=== PATIENT | male | born 1965 | race Caucasian/White ===

== ENCOUNTER 2016-08-09 12:43 | Emergency (ER) ==
[2016-08-09 12:50] VITALS: BP 121/94; TEMP 98.3; BMI 20.3
--- NOTE | 2016-08-09 13:27 | ED.PDOC ---
General ED Provider: Dr. ANGIE VICENTE Chief Complaint: Abscess Stated Complaint: abscess Time Seen by Physician: 13:00 (abscess on left tigh see photo) Information Source: Patient Exam Limitations: No limitations Nursing and Triage Documentation Reviewed and Agree: Yes Skin Complaint Exam - Skin/Soft Tissue Complaint/Exam Symptoms Are: Still present Timing: Constant Initial Severity: Moderate Current Severity: Moderate Character: Reports: Raised, Painful Aggravating: Reports: Heat, Cold, Touch Alleviating: Reports: None Associated Signs and Symptoms: Denies: Fever, Chills, Itching, Drainage, Bruising, Tenderness, Red streaks, Joint swelling Related History: Reports: Similar episode Related Surgical History: Reports: None Recent Exposure to Others w/Similar Symptoms: No Differential Diagnoses: Abscess Review of Systems - Review Of Systems Constitutional: Reports: No symptoms Eyes: Reports: No symptoms Ears, Nose, Mouth, Throat: Reports: No symptoms Respiratory: Reports: No symptoms Cardiac: Reports: No symptoms GI: Reports: No symptoms : Reports: No symptoms Musculoskeletal: Reports: No symptoms Skin: Reports: Other (abscess see photo) Neurological: Reports: No symptoms Endocrine: Reports: No symptoms Hematologic/Lymphatic: Reports: No symptoms All Other Systems: Reviewed and Negative Past Medical History - Past Medical History Previously Healthy: Yes Endocrine: Reports: None Cardiovascular: Reports: None Respiratory: Reports: None Hematological: Reports: None Gastrointestinal: Reports: None Genitourinary: Reports: None Neuro/Psych: Reports: None Musculoskeletal: Reports: None Cancer: Reports: None - Surgical History General Surgical History: Reports: None - Family History Family History: Reports: None - Social History Smoking Status: Heavy tobacco smoker Hx Substance Use: No Alcohol Screening: None - Immunizations Tetanus Shot up to Date: No Physical Exam - Physical Exam Appearance: Well-appearing, No pain distress, Well-nourished Eyes: LEONORA, EOMI, Conjunctiva clear ENT: Ears normal, Nose normal, Oropharynx normal Respiratory: Airway patent, Breath sounds clear, Breath sounds equal, Respirations nonlabored Cardiovascular: RRR, Pulses normal, No rub, No murmur GI/: Soft, Nontender, No masses, Bowel sounds normal, No Organomegaly Musculoskeletal: Normal strength, ROM intact, No edema, No calf tenderness Skin: Warm, Dry (pustule 3cm across) Neurological: Sensation intact, Motor intact, Reflexes intact, Cranial nerves intact, Alert, Oriented Psychiatric: Affect appropriate, Mood appropriate Critical Care Note - Critical Care Note Total Time (mins): 0 Course - Course Vital Signs: Temp Pulse Resp BP Pulse Ox 08/09/16 12:46 98.3 F 112 H 16 121/94 H 98 Departure - Departure Time of Disposition: 13:26 (refusedI/D ) Disposition: HOME SELF-CARE Discharge Problem: Abscess Instructions: Abscess (ED) Condition: Good Pt referred to PMD for follow-up: No Additional Instructions: Please call your Family Physician as soon as possible to schedule a follow-up appointment. Prescriptions: Hydrocodone/Acetaminophen [[place] 5-325 Tablet] 1 each PO Q6HR PRN #14 tablet PRN Reason: PAIN Sulfamethoxazole/Trimethoprim [Bactrim Ds Tablet] 1 each PO BID #14 tablet Allergies/Adverse Reactions: Allergies codeine Adverse Reaction (Verified 08/09/16 12:57) hydrocodone bitartrate [From Lortab] Adverse Reaction (Verified 08/09/16 12:57) Home Medications: Ambulatory Orders Esomeprazole Magnesium [Nexium] 40 mg PO DAILY 01/14/15 Hydrocodone/Acetaminophen [[place] 5-325 Tablet] 1 each PO Q6HR PRN #14 tablet 07/23 Sulfamethoxazole/Trimethoprim [Bactrim Ds Tablet] 1 each PO BID #14 tablet 08/09 Disposition Discussed With: Patient, Family
== END 2016-08-09 13:32 | disposition home or self-care (01) ==
LOC: ED 12:43
DX: L02.416 Cutaneous abscess of left lower limb (principal); F17.210 Nicotine dependence, cigarettes, uncomplicated
CPT/HCPCS: 99282

== ENCOUNTER 2016-08-19 17:59 | Emergency (ER) ==
[2016-08-19 18:06] VITALS: BP 126/88; TEMP 97.4; BMI 20.5
[2016-08-19] MEDS ORDERED: LIDOCAINE 1 % AMP 5 ML (SUTURES) ONE (18:09)
[2016-08-19] MEDS ORDERED: LIDOCAINE 1 % AMP 5 ML (SUTURES) SUBCUT STA (18:10)
[2016-08-19] MEDS ORDERED: ZOFRAN 4 MG/2 ML IM STA (18:17)
[2016-08-19] MEDS ORDERED: MORPHINE 4 MG/ML SYRINGE IM STA (18:17)
--- NOTE | 2016-08-19 18:48 | ED.PDOC ---
General ED Provider: Dr. ANGIE VICENTE Chief Complaint: Abscess Stated Complaint: abcess Time Seen by Physician: 18:00 (seen with nursing staff and sand mixer) Mode of Arrival: Walk-In Information Source: Patient Exam Limitations: No limitations Nursing and Triage Documentation Reviewed and Agree: Yes (seen about 10 days ago for same issue never followed up) Skin Complaint Exam - Skin/Soft Tissue Complaint/Exam Onset/Duration: abcess l tigh Symptoms Are: Still present Timing: Constant Initial Severity: Severe Current Severity: Severe Character: Reports: Redness, Swelling, Raised, Painful Aggravating: Reports: Unknown, Heat, Cold, Touch Alleviating: Reports: None Associated Signs and Symptoms: Reports: Drainage, Tenderness. Denies: Fever, Chills, Itching, Bruising, Red streaks, Joint swelling Related History: Reports: Similar episode (on the back ) Related Surgical History: Reports: None Recent Exposure to Others w/Similar Symptoms: No Skin Findings: Present: Pustules Joint Tenderness Present: No Differential Diagnoses: Abscess Review of Systems - Review Of Systems Constitutional: Reports: No symptoms Eyes: Reports: No symptoms Ears, Nose, Mouth, Throat: Reports: No symptoms Respiratory: Reports: No symptoms Cardiac: Reports: No symptoms GI: Reports: No symptoms : Reports: No symptoms Musculoskeletal: Reports: No symptoms Skin: Reports: Other (abscess l tigh see photos) Neurological: Reports: No symptoms Endocrine: Reports: No symptoms Hematologic/Lymphatic: Reports: No symptoms All Other Systems: Reviewed and Negative Past Medical History - Past Medical History Previously Healthy: Yes Endocrine: Reports: None Cardiovascular: Reports: None Respiratory: Reports: None Hematological: Reports: None Gastrointestinal: Reports: None Genitourinary: Reports: None Neuro/Psych: Reports: None Musculoskeletal: Reports: None Cancer: Reports: None - Surgical History General Surgical History: Reports: None - Family History Family History: Reports: None - Social History Smoking Status: Heavy tobacco smoker Hx Substance Use: No Alcohol Screening: None Physical Exam - Physical Exam Appearance: Well-appearing, No pain distress, Well-nourished Eyes: LEONORA, EOMI, Conjunctiva clear ENT: Ears normal, Nose normal, Oropharynx normal Respiratory: Airway patent, Breath sounds clear, Breath sounds equal, Respirations nonlabored Cardiovascular: RRR, Pulses normal, No rub, No murmur GI/: Soft, Nontender, No masses, Bowel sounds normal, No Organomegaly Musculoskeletal: Normal strength, ROM intact, No edema, No calf tenderness Skin: Warm, Dry (3 cm abscess l tigh locculated and firm already self unroofed ) Neurological: Sensation intact, Motor intact, Reflexes intact, Cranial nerves intact, Alert, Oriented Psychiatric: Affect appropriate, Mood appropriate Procedures - Incision and Drainage Site: l tigh Instrument Used: 15 Blade I & D Procedure: Yes: Hibiclens Prep Lidocaine Used: Yes (2ml plain) Type of Drainage: Present: Pus, Blood Irrigated: No (about 3 ml of puss drained the rest was loculated ) Physician Notification - Case Discussed Physician Notified: Lizzeth Time of Notification: 18:49 (PT TO BE TRANSFERED TO [facility]) Critical Care Note - Critical Care Note Total Time (mins): 0 Course - Course Orders, Labs, Meds: Orders Category Date Time Status Lidocaine HCl/Pf [Lidocaine 1 % Amp 5 ml (Sutures)] MEDS 08/19/16 18:09 Discontinued 5 ml .ROUTE .STK-MED ONE Lidocaine HCl/Pf [Lidocaine 1 % Amp 5 ml (Sutures)] MEDS 08/19/16 18:10 Discontinued 5 ml SUBCUT ONCE STA Morphine Sulfate [Morphine 4 mg/ml Syringe] MEDS 08/19/16 18:17 Discontinued 4 mg IM ONCE STA Ondansetron HCl/Pf [Zofran 4 mg/2 ml] MEDS 08/19/16 18:17 Discontinued 4 mg IM ONCE STA Medications Discontinued Medications Generic Name Dose Route Start Last Admin Trade Name Freq PRN Reason Stop Dose Admin Lidocaine HCl 5 ml 08/19/16 18:10 08/19/16 18:31 Lidocaine 1 % Amp 5 Ml (Sutures) SUBCUT 08/19/16 18:11 5 ml ONCE STA Administration Morphine Sulfate 4 mg 08/19/16 18:17 08/19/16 18:30 Morphine 4 Mg/Ml Syringe IM 08/19/16 18:18 Not Given ONCE STA Ondansetron HCl 4 mg 08/19/16 18:17 08/19/16 18:30 Zofran 4 Mg/2 Ml IM 08/19/16 18:18 Not Given ONCE STA Vital Signs: Temp Pulse Resp BP Pulse Ox 08/19/16 18:00 97.4 F L 95 H 16 126/88 97 Departure - Departure Time of Disposition: 18:50 (LAST MEAL WAS A SODA ABOUT 3 PM) Disposition: TSF SHORT-TRM HOSP Discharge Problem: Abscess Instructions: Abscess (ED) Condition: Good Pt referred to PMD for follow-up: No Additional Instructions: Please call your Family Physician as soon as possible to schedule a follow-up appointment. Allergies/Adverse Reactions: Allergies codeine Adverse Reaction (Verified 08/19/16 18:01) hydrocodone bitartrate [From Lortab] Adverse Reaction (Verified 08/19/16 18:01) Home Medications: Ambulatory Orders Esomeprazole Magnesium [Nexium] 40 mg PO DAILY 01/14/15 Disposition Discussed With: Patient (PHOTOS OF BEFORE AND AFTER SUBMITTED )
== END 2016-08-19 19:08 | disposition short-term general hospital (02) ==
LOC: ED 17:59
DX: L02.416 Cutaneous abscess of left lower limb (principal); F17.210 Nicotine dependence, cigarettes, uncomplicated
CPT/HCPCS: 87070; 87186; 99285

== ENCOUNTER 2016-10-26 08:31 | Emergency (ER) ==
[2016-10-26 08:36] VITALS: BP 139/87; TEMP 97.7; BMI 22.4
--- NOTE | 2016-10-26 09:14 | ED.PDOC ---
General ED Provider: Dr. FRED KUHN JR Chief Complaint: Rash Stated Complaint: HAD A TICK BITE AND SPIDER BITE TO LEFT THIGH 2 MONTHS AGO. HAD SURGERY ON THE SPIDER BITE. NOW HAS RED RAISED AREA WITH BLISTERS TO SAME AREA. DENIES ITCHING STATES [place] [End]97.7 77 18 98% 139/87. myalgia headache left leg Time Seen by Physician: 09:18 Mode of Arrival: Walk-In Information Source: Patient Exam Limitations: No limitations Nursing and Triage Documentation Reviewed and Agree: No Review of Systems - Review Of Systems Constitutional: Reports: No symptoms Eyes: Reports: No symptoms Ears, Nose, Mouth, Throat: Reports: No symptoms Respiratory: Reports: No symptoms Cardiac: Reports: No symptoms GI: Reports: No symptoms : Reports: No symptoms Musculoskeletal: Reports: No symptoms Skin: Reports: Lesions, Rash (multile healing tick bite spatient had been bitten in this area but unsure where- close to healed spider bite) Neurological: Reports: No symptoms Endocrine: Reports: No symptoms Hematologic/Lymphatic: Reports: No symptoms All Other Systems: Other Past Medical History - Past Medical History Previously Healthy: Yes Endocrine: Reports: None Cardiovascular: Reports: None Respiratory: Reports: None Hematological: Reports: None Gastrointestinal: Reports: None Genitourinary: Reports: None Neuro/Psych: Reports: None Musculoskeletal: Reports: None Cancer: Reports: None - Surgical History General Surgical History: Reports: None - Family History Family History: Reports: None - Social History Smoking Status: Heavy tobacco smoker Hx Substance Use: No Alcohol Screening: None Physical Exam - Physical Exam Appearance: Well-appearing, Thin Skin: Warm, Dry, Normal color (LEFT LEG WITH 6CM RING SHAPED LESION DISTAL PORTION WITH FINE VESICLES) Critical Care Note - Critical Care Note Total Time (mins): 0 Course - Course Hematology/Chemistry: 10/26/16 09:25 Orders, Labs, Meds: Lab Review 10/26/16 09:25 WBC 5.28 RBC 5.36 Hgb 16.2 Hct 46.1 MCV 86.0 MCH 30.2 MCHC 35.1 RDW Coeff of Lianet 13.1 Plt Count 223 Immature Gran % (Auto) 0.2 Neut % (Auto) 47.5 Lymph % (Auto) 39.8 [place] % (Auto) 8.1 Eos % (Auto) 4.0 Baso % (Auto) 0.4 Immature Gran # (Auto) 0.0 Neut # 2.5 Lymph # 2.1 [place] # 0.4 Eos # 0.2 Baso # 0.0 Orders Category Date Time Status BLOOD CULTURE Stat LAB 10/26/16 09:25 Received CBC W/ AUTO DIFF Stat LAB 10/26/16 09:25 Completed CMP [COMPREHENSIVE METABOLIC PANEL] Stat LAB 10/26/16 09:25 Received EHRLICHIA DNA, PCR Stat LAB 10/26/16 09:25 Received LYME, WESTERN BLOT, SERUM Stat LAB 10/26/16 09:25 Received Vital Signs: Temp Pulse Resp BP Pulse Ox 10/26/16 08:31 97.7 F 77 18 139/87 98 Departure - Departure Time of Disposition: 09:32 Disposition: HOME SELF-CARE Discharge Problem: Pruritic rash, Lyme disease with largest skin lesion of 2 inches or more Instructions: Lyme Disease (ED), Tick Bite (ED) Condition: Good Pt referred to PMD for follow-up: Yes Additional Instructions: NO cortisone on leg rash may use cortisone on arm and neck rash recheck one week PMD may follow with [facility] may use desitin or Benadryl on leg if improves itching would not use antibiotic ointment return if fever over 101.0 doxycycline two then one twice a day for two weeks (refill only if advised to do so by PMD) discuss rifampin with PMD Prescriptions: Doxycycline Monohydrate [Monodox] 100 mg PO BID #20 capsule Doxycycline Monohydrate [Monodox] 100 mg PO BID #24 capsule Allergies/Adverse Reactions: Allergies codeine Adverse Reaction (Verified 10/26/16 08:36) Home Medications: Ambulatory Orders Esomeprazole Magnesium [Nexium] 40 mg PO DAILY 01/14/15 Aspirin 81 mg PO DAILY 10/26/16 Cetirizine HCl [Zyrtec] 10 mg PO DAILY 10/26/16 Doxycycline Monohydrate [Monodox] 100 mg PO BID #20 capsule 10/26/16 Doxycycline Monohydrate [Monodox] 100 mg PO BID #24 capsule 10/26/16
[2016-10-26 09:34] LABS: BASOPHILS % (AUTO) 0.4 % (0.0-3.0); EOSINOPHILS # (AUTO) 0.2 K/ul (0.0-0.7); HEMATOCRIT 46.1 % (42.0-52.0); HEMOGLOBIN 16.2 g/dl (14.0-18.0); IMMATURE GRANULOCYTE % (AUTO) 0.2 % (0.0-5.0); LYMPHOCYTES # (AUTO) 2.1 K/uL (0.60-3.4); LYMPHOCYTES % (AUTO) 39.8 (10.0-50.0); MEAN CORPUSCULAR HEMOGLOBIN 30.2 pg (27.0-31.0); MEAN CORPUSCULAR HGB CONC 35.1 (31.8-35.4); MONOCYTES # (AUTO) 0.4 K/uL (0.4-2.0); MONOCYTES % (AUTO) 8.1 (0-10); NEUTROPHILS # (AUTO) 2.5 K/ul (2.0-6.9); NEUTROPHILS % (AUTO) 47.5; PLATELET COUNT 223 10^3/uL (140-440); RED BLOOD COUNT 5.36 10^6/ul (4.70-6.10); WHITE BLOOD COUNT 5.28 K/ul (4.2-10.2)
[2016-10-26 09:56] LABS: ALBUMIN/GLOBULIN RATIO 1.11; BILIRUBIN,TOTAL 0.46 mg/dL (0.00-1.20); BUN/CREATININE RATIO 13.04; CALCIUM 9.2 mg/dL (8.2-10.2); CREATININE 1.15 mg/dL (0.60-1.10); TOTAL PROTEIN 7.6 g/dL (6.4-8.2)
[2016-10-29 02:11] LABS: IGG P18 AB Absent (.); IGG P23 AB Absent (.); IGG P28 AB Absent (.); IGG P30 AB Absent (.); IGG P39 AB Absent (.); IGG P41 AB Present (.); IGG P45 AB Absent (.); IGG P58 AB Absent (.); IGG P66 AB Present (.); IGG P93 AB Absent (.); IGM P39 AB Absent (.); IGM P41 AB Absent (.)
[2016-10-29 15:22] LABS: LYME IGG WB INTERP Negative (.); LYME IGM WB INTERP Negative (.)
== END 2016-10-26 10:10 | disposition home or self-care (01) ==
LOC: ED 08:31
DX: A69.20 Lyme disease, unspecified (principal); R21 Rash and other nonspecific skin eruption; L29.9 Pruritus, unspecified; S70.362A Insect bite (nonvenomous), left thigh, initial encounter; W57.XXXA Bitten or stung by nonvenomous insect and other nonvenomous arthropods, initial encounter; F17.210 Nicotine dependence, cigarettes, uncomplicated
CPT/HCPCS: 36415; 80053; 85025; 86617; 87040; 87798; 99283

== ENCOUNTER 2018-09-12 13:54 | Emergency (ER) ==
[2018-09-12 13:59] VITALS: BP 145/90; TEMP 99; BMI 23.8
--- NOTE | 2018-09-12 14:27 | ED.PDOC ---
General ED Provider: Dr. KARTHIK PEARSON Chief Complaint: Non-specific Complaint Stated Complaint: Facial Pain and swelling. States the right side of his face is swollen. This has happened in the past but always resolves after applying pressure and this causes drainaged in his mouth. He states this time is not going away and is painful. Time Seen by Physician: 14:20 Mode of Arrival: Walk-In Information Source: Patient Exam Limitations: No limitations [facility] Nursing and Triage Documentation Reviewed and Agree: Yes Does patient meet sepsis criteria?: No System Inflammatory Response Syndrome: Not Applicable Sepsis Protocol: For patient's 13 years and over: Temp is 96.8 and below OR 101 and greater Pulse >90 BPM Resp >20/minute Acutely Altered Mental Status Are patient's symptoms suggestive of a new infection, such as: -Pneumonia -Skin, Soft Tissue -Endocarditis -UTI -Bone, Joint Infection -Implantable Device -Acute Abdominal Infection -Wound Infection -Meningitis -Blood Stream Catheter Infection -Unknown EENT Complaint Exam - Dental/Oral Complaint/Exam Symptoms Are: Still present Timing: Constant Initial Severity: Moderate Current Severity: Moderate Location: Rt Maxillar ridge Character: Reports: Aching, Throbbing Aggravating: Reports: Chewing Alleviating: Reports: None Associated Signs and Symptoms: Reports: Swelling, Discharge, Foul taste in mouth Related History: Reports: Similar episode Dental/Oral Surgical History: Reports: None Tooth Findings: Present: Normal findings Facial Swelling Present: Yes Bleeding Present: No Oropharynx Findings: Present: Active bleeding Septal Hematoma: No Foreign Body Present: No Dysphagia Present: No Drooling Present: Yes Asymmetrical Tonsillar Swelling Present: No Uvula Midline: No Alanna-tonsillar Fluctuence: No Trismus Present: No Palatal Petechiae Present: No Scarlatinaform Rash Present: No Lesions: Absent: Buccal Mucosa, Pharynx Exanthem: Absent: Buccal Mucosa, Pharynx Vesicles: Absent: Buccal Mucosa, Pharynx Differential Diagnoses: Other (parotiditis/retained ductal stone) Review of Systems - Review Of Systems Constitutional: Reports: No symptoms Eyes: Reports: No symptoms Ears, Nose, Mouth, Throat: Reports: Mouth pain, Mouth swelling. Denies: Throat swelling Respiratory: Reports: No symptoms Cardiac: Reports: No symptoms GI: Reports: No symptoms : Reports: No symptoms Musculoskeletal: Reports: No symptoms Skin: Reports: No symptoms Neurological: Reports: No symptoms Endocrine: Reports: No symptoms Hematologic/Lymphatic: Reports: No symptoms All Other Systems: Reviewed and Negative Past Medical History - Past Medical History Previously Healthy: Yes Endocrine: Reports: None Cardiovascular: Reports: None Respiratory: Reports: None Hematological: Reports: None Gastrointestinal: Reports: None Genitourinary: Reports: None Neuro/Psych: Reports: None Musculoskeletal: Reports: None Cancer: Reports: None - Surgical History General Surgical History: Reports: None - Family History Family History: Reports: None - Social History Smoking Status: Heavy tobacco smoker Hx Substance Use: No Alcohol Screening: None Physical Exam - Physical Exam Appearance: Well-appearing, No pain distress, Well-nourished Ill-appearing: Mild Pain Distress: Mild Eyes: LEONORA, EOMI, Conjunctiva clear ENT: Ears normal, Nose normal, Oropharynx normal Neck: Supple Respiratory: Airway patent, Breath sounds clear, Breath sounds equal, Respirations nonlabored Cardiovascular: RRR, Pulses normal, No rub, No murmur GI/: Soft, Nontender, No masses, Bowel sounds normal, No Organomegaly Musculoskeletal: Normal strength, ROM intact, No edema, No calf tenderness Skin: Warm, Dry, Normal color Neurological: Sensation intact, Motor intact, Reflexes intact, Cranial nerves intact, Alert, Oriented Psychiatric: Affect appropriate, Mood appropriate Critical Care Note - Critical Care Note Total Time (mins): 0 Course - Course Hematology/Chemistry: 09/12/18 14:53 09/12/18 14:53 Vital Signs: Temp Pulse Resp BP Pulse Ox 09/12/18 13:56 99.0 F 112 H 18 145/90 H 96 Departure - Departure Time of Disposition: 16:30 Disposition: HOME SELF-CARE Discharge Problem: Acute parotitis, Salivary duct calculi, Sialadenitis Instructions: Sialoadenitis (ED) Condition: Good Pt referred to PMD for follow-up: Yes IPMP verified?: Yes Additional Instructions: Rinse mouth warm salt water. Antibioitics Massage rt facial -gum line attempt to dislodge stone Follow up PCP Dr Mccullough / ENT or oral surgeon Allergies/Adverse Reactions: Allergies codeine Adverse Reaction (Verified 09/12/18 13:59) Home Medications: Ambulatory Orders Cephalexin [Keflex] 500 mg PO BID #14 capsule 09/12/18 Ketorolac Tromethamine [Toradol] 10 mg PO Q6H PRN #20 tablet 09/12/18 Omeprazole Magnesium [Prilosec Otc] 20 mg PO DAILY 09/12/18 Disposition Discussed With: Patient, Family
[2018-09-12] MEDS ORDERED: TORADOL IVP STA (14:43)
--- NOTE | 2018-09-12 16:16 | CT ---
EXAM: CT of the maxillofacial region with and without contrast History: Right facial swelling. Technique: Multiplanar CT images through the maxillofacial region were obtained with and without the administration of IV contrast Findings: No acute intracranial abnormalities. Orbits are intact. No acute fracture or dislocation . Mild mucosal thickening of the paranasal sinuses. Mastoid air cells are clear. 4 mm stone within the right parotid duct. There is inflammation and abnormal enhancement of the right parotid gland. There is subcutaneous edema of the right cheek. The submandibular glands are not inflamed. The lef t parotid gland is unremarkable. Impression: Right parotiditis caused by a 4 mm salivary gland duct stone.
== END 2018-09-12 17:13 | disposition home or self-care (01) ==
LOC: ED 13:54
DX: K11.21 Acute sialoadenitis (principal); F17.210 Nicotine dependence, cigarettes, uncomplicated
CPT/HCPCS: 36415; 80053; 85025; 96374; 99283

== ENCOUNTER 2018-09-14 14:32 | Outpatient (CLI) ==
--- NOTE | 2018-09-14 16:41 | DI ---
EXAM: Two views of the chest. History: Short of breath Comparison: Chest radiograph 09/21/2009 Findings: Heart size is normal. No focal consolidation. No appreciable pleural fluid and no pneumo thorax. No acute osseous abnormalities. There are nodular densities seen within the right hemithora x. Impression: 1. No acute cardiopulmonary process. 2. Nodular densities within the right hemithorax could be artifact from overlying clothing material but cannot exclude lung nodules.. Recommend repeat study.
== END 2018-09-14 14:33 | disposition home or self-care (01) ==
LOC: RAD 14:32
PROVIDERS: ATTEND General Practice
DX: R06.02 Shortness of breath (principal); R05 Cough

== ENCOUNTER 2018-09-22 13:56 | Outpatient (CLI) ==
--- NOTE | 2018-09-22 14:46 | CT ---
EXAM: CT chest without contrast HISTORY: Abnormal findings on diagnostic imaging of other specified body structures COMPARISON: Radiograph 09/14/2018 TECHNIQUE: CT chest performed without intravenous contrast. Coronal and sagittal reformatted images obtained. FINDINGS: Thoracic inlet appears normal. Heart normal in size. No pericardial effusion. Aorta nor mal in caliber. Esophagus unremarkable. Evaluation for lymphadenopathy limited without contrast. N o lymphadenopathy identified. Calcified mediastinal and right hilar lymph nodes, consistent with old granulomatous disease. Visualized portion upper abdomen demonstrates no acute abnormality. Grains calcification in the spleen. No acute abnormalities of the bones. Mild degenerative change in the s pine. Central airway patent. Mild emphysematous change. No airspace consolidation. No pleural eff usion. No pneumothorax. No granulomatous calcification right lung. No noncalcified pulmonary nodul es. IMPRESSION: 1. No pulmonary nodules. 2. No acute cardiopulmonary process. 3. Emphysema. 4. Findings of old granulomatous disease.
== END 2018-09-22 13:57 | disposition home or self-care (01) ==
LOC: RAD 13:56
PROVIDERS: ATTEND General Practice
DX: R93.89 Abnormal findings on diagnostic imaging of other specified body structures (principal); R91.1 Solitary pulmonary nodule